=== PATIENT | male | born 1960 | race Caucasian/White ===

== ENCOUNTER 2024-11-30 13:46 | Outpatient (AMB) | payer MEDICARE, MEDICAID, SELFPAY ==
--- NOTE | 2024-11-30 14:07 | ORTHONT_ITS ---
Vital signs 11/30/24 14:08 Height 1.7 m Height Method Stated Weight 69.059 kg Weight Measurement Method Standing Scale BMI 23.8 BP 149/76 H Blood Pressure Source Automatic Cuff Blood Pressure Location Left Upper Arm Position Sitting Respiration 18 Pulse 89 Pulse Source Monitor Temp 97.4 F Temp Source Temporal Artery Scan Pulse Oximetry (%) 95 Oxygen Delivery Method Room Air Med/Allergies Allergies & Medications Allergies No Known Allergies Allergy (Verified 11/30/24 14:10) Medication Reconciliation meloxicam 7.5 mg tablet 7.5 mg PO QDAY #45 tabs 11/30/24 [Rx] tamsulosin 0.4 mg capsule 0.4 mg PO QDAY 11/30/24 [History Confirmed 11/30/24] Exam Exam Patient is in no acute distress and is cooperative with the examination today. Breathing is nonlabored. In no respiratory distress. Patient has no paraspinal tenderness. Spinal deformity cannot be appreciated. The gait of the patient is nonantalgic Bilateral extremities were evaluated and demonstrates sensation intact to light touch. Palpable pedal pulses are present. No significant edema is present. Bilateral knees were examined and the patient has full strength and range of motion.. The left hip was examined. Patient was able to flex to 90 degrees, adduct to 30 degrees, abduct to 40 degrees, internally rotate to 20 degrees, and externally rotate to 20 degrees. Patient has a negative logroll. Stinchfield is negative. The patient is nontender diffusely to touch. The right hip was examined. Patient was able to flex to 90 degrees, adduct to 30 degrees, abduct to 40 degrees, internally rotate to 20 degrees, and externally rotate to 20 degrees. Jazzy was positive Assessment and Plan Problem List (1) Bilateral hip joint arthritis: Status: Acute Plan: Patient is a pleasant 64-year-old male with right hip pain and right If arthritis of significant severity. Pain is in the buttocks but mostly in the groin. She would like to try hip injection which is reasonable. I will see him back approximately 4 to 6 weeks after his hip injection to see how it went Advanced Care Planning Discussion Advance care planning discussed with:: patient Office Procedures GNS Level of Care Nursing/Assessment Patient Status: Initial/New Patient Nursing Assessment/Reassesment: Medication Reconciliation, Update PMH in EMR and Vital Signs Coordination of Care: Complex Care and Chronic Disease 1-5, Education Complex Pt/Fam, Consent,records obtained, informed consent, 1 Ins Authorization, Lab and Imaging orders, Results/Orders obtained and Staff clarify orders New Patient Charge New Patient Point Assignment: 1124 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 ([id number]) MA Intake Visit Data Collection New Patient or Established: New Patient (never been to [facility]) Reason for Visit:: RIGHT HIP OA Seen by Clinical Staff ONLY (RN/MA): No Will Call Order Clerk Required: No PCP or OBGYN visit in last 3 months: Yes Hx Now: No Do You Feel Safe at Home: Yes Authorities Contacted: N/A Questionairres Past Medical History Past Medical History Have you ever been diagnosed with any of the following: Respiratory Problems Smoking: Yes (20 YEARS) Smoking Exposure: Yes Subjective Visit Visit for: new patient and hip (RIGHT) Immunization / Flu Flu Vaccine in the Last 12 Months: Yes Flu Vaccine Exclusion Criteria: Already Received History of Present Illness Chief complaint: Right hip pain Date of injury / onset of symptoms: 2 YEARS Leoncio is a pleasant 64-year-old male with right hip pain and right hip arthritis. This been bothering him for quite a while. The pain is primarily in the groin and radiates to the back. He is tried ibuprofen in the past. 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
[2024-11-30 14:08] VITALS: BP 149/76; PULSE 89; RESP 18; TEMP 36.3; O2SAT 95; BMI 23.8
== END 2024-11-30 14:30 | disposition home or self-care (01) ==
LOC: HODSRG 13:46
PROVIDERS: PCP Student in an Organized Health Care Education/Training Program; Referring Provider Student in an Organized Health Care Education/Training Program; Supervising Provider Orthopaedic Surgery Adult Reconstructive Orthopaedic Surgery; Visit Provider Orthopaedic Surgery Adult Reconstructive Orthopaedic Surgery
DX: M17.0 Bilateral primary osteoarthritis of knee (principal); M25.551 Pain in right hip
CPT/HCPCS: 99204; G0463

== ENCOUNTER → 2024-12-16 | Outpatient (CLI) | payer MEDICARE, MEDICAID, SELFPAY ==
--- NOTE | 2024-12-16 13:00 | XR_ITS ---
Examination: Steroid injection right hip joint with imaging guidance Fluoroscopy AP right hip 2 views. Exam date and time: December 16, 2024 1206 hours INDICATIONS: Diagnosis right hip unilateral osteoarthritis right hip pain years Informed consent provided. Technique: A timeout was completed verifying correct patient, procedure, site, positioning. The patient was placed in supine position appropriate for the steroid injection The patient's site was prepped and draped in sterile fashion 5 cc 1% lidocaine administered locally for anesthesia. Sterile drape applied, maximum barrier sterile technique. Utilizing fluoroscopic guidance, 23-gauge needle placed in the right hip joint 1 cc Kenalog 40 in 5 cc 0.25% Marcaine introduced into the right hip joint The patient was in satisfactory and stable condition on completion of the procedure Attending radiologist was present for the entire procedure Estimated blood loss 0 cc. Impression: Successful steroid injection right hip joint with imaging guidance Fluoroscopy 0.1 minute radiation dose 1.61 milligray 2 spot fluoroscopic films .
[2024-12-16] MEDS: TRIAMCINOLONE ACET INJ 40 MG/ML VIAL IM (13:19)
[2024-12-16] MEDS: BUPIVACAINE MPF 0.25% 30 ML VIAL EPID (13:20)
== END | disposition home or self-care (01) ==
PROVIDERS: Referring Provider Orthopaedic Surgery Adult Reconstructive Orthopaedic Surgery; Visit Provider Orthopaedic Surgery Adult Reconstructive Orthopaedic Surgery
DX: M16.11 Unilateral primary osteoarthritis, right hip (principal)
CPT/HCPCS: 20610; 77002; J3301; J3490; J0665